=== PATIENT | male | born 1960 | race Caucasian/White ===

== ENCOUNTER 2023-08-19 12:05 | Outpatient (OUT) | payer MEDICARE, SELFPAY ==
[2023-08-19 12:55] LABS: Basophils Percent Auto 0.4 % (0.2-2.0); Eosinophils Absolute Auto 0.1 10^3/uL (0.0-0.7); Eosinophils Percent Auto 1.8 % (0.9-7.0); Hematocrit 44.5 % (42.0-54.0); Hemoglobin 14.6 g/dL (14.0-18.0); Immature Granulocytes Abs Auto 0.02 10^3/uL (0.00-0.03); Immature Granulocytes Pct Auto 0.3 % (0.0-0.5); Lymphocytes Absolute Auto 2.4 10^3/uL (1.2-3.8); Lymphocytes Percent Auto 35.4 % (20.5-60.0); Mean Corpuscular HGB Conc 32.8 g/dL (29.9-35.2); Mean Corpuscular Hemoglobin 32.7 pg (25.9-34.0); Mean Corpuscular Volume 99.6 fL (80.0-94.0); Mean Platelet Volume 9.3 fL (9.5-13.5); Monocytes Absolute Auto 0.6 10^3/uL (0.3-0.8); Monocytes Percent Auto 8.8 % (1.7-12.0); Neutrophils Absolute Auto 3.6 10^3/uL (1.4-6.5); Neutrophils Percent Auto 53.3 % (43.0-75.0); Platelet Count 212 10^3/uL (150-450); Red Blood Count 4.47 10^6/uL (4.70-6.10); Red Cell Distribution Width 11.9 % (11.0-15.0); White Blood Count 6.7 10^3/uL (4.0-11.0)
[2023-08-19 15:26] LABS: Alanine Aminotransferase 8 U/L (16-63); Albumin Globulin Ratio 1.1; Albumin Level 3.6 g/dL (3.4-5.0); Alkaline Phosphatase 49 U/L (46-116); Anion Gap 12.7; Aspartate Amino Transferase 15 U/L (15-37); BUN Creatinine Ratio 11.7; Bilirubin Total 0.4 mg/dL (0.2-1.0); Calcium 9.1 mg/dL (8.5-10.1); Chloride 104 mmol/L (98-107); Estimated GFR (African America >60 (>=60); Estimated GFR (Non-African Ame >60 (>=60); Globulin 3.3 g/dL; Glucose 78 mg/dL (74-106); Potassium 3.7 mmol/L (3.5-5.1); Sodium 139 mmol/L (136-145); Total Protein 6.9 g/dL (6.4-8.2); Valproic Acid 36.3 ug/mL (50.0-100.0)
== END 2023-08-19 12:06 | disposition home or self-care (01) ==
LOC: LAB 12:15
DX: Z86.69 Personal history of other diseases of the nervous system and sense organs (principal)
CPT/HCPCS: 36415; 80053; 80164; 85025

== ENCOUNTER 2023-12-09 12:01 | Outpatient (OUT) | payer MEDICARE, SELFPAY ==
[2023-12-09 12:32] LABS: Valproic Acid 51.4 ug/mL (50.0-100.0)
== END 2023-12-09 12:02 | disposition home or self-care (01) ==
LOC: LAB 12:02
PROVIDERS: PCP Internal Medicine; Visit Provider Physician Assistant
DX: G40.909 Epilepsy, unspecified, not intractable, without status epilepticus (principal)
CPT/HCPCS: 36415; 80164

== ENCOUNTER 2025-05-18 09:55 | Emergency (ER) | payer MEDICARE, SELFPAY ==
[2025-05-18 10:00] VITALS: BP 122/75; PULSE 77; TEMP 36.8; O2SAT 97; BMI 21.0
--- NOTE | 2025-05-18 10:42 | PC.NURSE ---
right hip / upper thigh pain, no bruising, redness or swelling observed. pt appears to have pain with ROM / bending right knee.
--- NOTE | 2025-05-18 10:42 | CT_ITS ---
The [address] [address] Patient Name: BIRGIT JORDAN MRN: [id number] date: 1960 Sex: M Assigned Patient Location: ER Current Patient Location: Accession/Order Number: [id number] Exam Date: 05/18/2025 10:50 Report Date: 05/18/2025 11:24 At the request of: JIMMIE JASSO MD Procedure: CT pelvis wo con CT BONY PELVIS WITHOUT CONTRAST WITH 3-D RECONSTRUCTIONS COMPARISON: None CLINICAL DATA: Chronic right hip pain. Possible fall. Spiral axial unenhanced images were obtained through the pelvis. Sagittal, coronal and 3-D volume rendered reconstructions were reviewed. This CT exam was performed using one or more following dose reduction techniques: Automated exposure control, adjustment of the mA and/or kV according to patient size, or use of iterative reconstruction technique. The bony pelvis including the sacrum, iliac bones and proximal femora show no evidence of fracture or dislocation. There is minimal degenerative change at the lumbosacral junction. The SI joints are intact. The musculotendinous structures in the field of view are symmetric. No subcutaneous abnormalities are seen. There are small benign-appearing inguinal lymph nodes. A small umbilical hernia is present containing fat. No dilated bowel loops are seen. The urinary bladder is under distended and there is apparent wall thickening. No ascites is identified. CT/CT pelvis wo con IMPRESSION: NO ACUTE PELVIC BONY FINDINGS. Impression dictated by: Gabby Jasmine M.D. 05/18/2025 11:24 AM Dictation Location: [facility] Electronically authenticated by: [id number] Y Date: 05/18/2025 11:24
--- OUTSIDE RECORDS SUMMARY | 2025-05-18 10:43 | XMS_ITS | Clinical Summary ---
Author Organization [employer] [facility] tem Address [id number] [place] [address] Care Team Providers Care Certified Corporate Travel Executive Name Role Phone Avila Mcdonald MD Primary Care Provider [phone] Allergies No known active allergies Medications MedicationSigDispense QuantityRefillsLast FilledStart DateEnd DateStatus OLANZapine (ZyPREXA) 20 mg tablet Take 20 mg by mouth nightly.Active omeprazole (PriLOSEC) 20 mg capsule Take 20 mg by mouth 2 (two) times a day. Take one capsule by mouth twice a day Active venlafaxine XR (EFFEXOR-XR) 75 mg 24 hr capsule Take 75 mg by mouth daily.Active benztropine (COGENTIN) 1 mg tablet Take 1 mg by mouth 2 (two) times a day. Take one tablet by mouth twice a day Active divalproex (DEPAKOTE ER) 500 mg 24 hr tablet Take 1 tablet (500 mg total) by mouth daily. 30 tablet 6106/18/2018Active Active Problems ProblemNoted DateDiagnosed DateIntracerebral zoxwuzpwuy05/24/2019 Immunizations No known immunizations Family History Medical HistoryRelationNameCommentsNo Known ProblemsFatherNo Known Problems MotherRelationNameStatusCommentsFatherDeceasedMotherDeceased Social History Tobacco UseTypesPacks/DayYears UsedDateSmoking Tobacco: NeverSmokeless Tobacco: NeverAlcohol UseStandard Drinks/WeekCommentsNever0 (1 standard drink = 0.6 oz pure alcohol)AUDIT-CAnswerDate RecordedFrequency of Alcohol ConsumptionNever 02/22/2019Average Number of DrinksNot on file02/22/2019Frequency of Binge DrinkingNot on file02/22/2019ChildcareAnswerDate RecordedChildcareUnknown 02/22/2019EmploymentAnswerDate FnvxdsalZxaojtzfxwXaaebum08/24/2019Purpose - Life AnswerDate RecordedPurpose and direction in sdcgMqxvatt18/11/2021Sex and Gender InformationValueDate RecordedSex Assigned at BirthNot on fileLegal SexMale 02/22/2019 3:55 PM EDTGender IdentityNot on fileSexual OrientationNot on file Last Filed Vital Signs Vital SignReadingTime TakenCommentsBlood Ojytlpxi240/8102/26/2019 4:13 PM EDT Holqu834702/26/2019 4:13 PM IPEIbkbnbwdpsz94.8 ??C (98.2 ??F)02/26/2019 4:13 PM EDTRespiratory Zums675302/26/2019 11:23 AM EDTOxygen Rtmxfvfeau91%02/26/2019 4:13 PM EDTInhaled Oxygen Concentration--Kcuzhq75.9 kg (158 lb 8.2 oz)02/26/2019 5:00 AM HYDRxjgcp010.6 cm (5' 4 )02/22/2019 11:28 PM EDTBody Mass Index27.21 02/22/2019 11:28 PM EDT Plan of Treatment Health MaintenanceDue DateLast DoneCommentsDepression Gonfllxsj89/02/1972Tobacco Hqxcqdtev55/02/1972Adult BMI Syjzsleea1978DTaP,Tdap and Td Vaccines (1 - Tdap)1978Zoster (Shingles) Vaccine (1 of 2)2009Fall Risk Screening 2024Influenza Mixkrlb0601/30/2025RSV ( or age 60+ yrs) (1 - 1-dose 75+ series)2034 Goals GoalPatient Goal TypeAssociated ProblemsRecent ProgressPatient-Stated?Author safe discharge home Margaret Kim, RN Note: Evaluation of progress towards goal: Return home with self care and family support. Medical Devices Not on file Insurance Care Teams Team MemberRelationshipSpecialtyStart DateEnd Avila Mcdonald MD [address] [facility] [address] [place] [id number] PCP - GeneralInternal Medicine02/24/19
--- OUTSIDE RECORDS SUMMARY | 2025-05-18 10:43 | XMS_ITS | Clinical Summary ---
Author Organization [facility] Address [address] [facility] [place] [address] Care Team Providers Care Waste Hand Name Role Phone Avila Mcdonald MD Primary Care Provider [phone] Avila Mcdonald MD Unavailable [phone] Eri Quezada Unavailable Allergies No known active allergies Medications MedicationSigDispense QuantityRefillsLast FilledStart DateEnd DateStatus loratadine (Claritin) 10 MG tablet Indications:Allergic rhinitis, unspecified seasonality, unspecified triggerTAKE 1 TABLET BY MOUTH EVERY DAY 100 tablet 4Active cyanocobalamin (Vitamin B-12) 1000 MCG tablet Take 1,000 mcg by mouth DailyActive megestrol (Megace) 40 MG/ML suspension Indications:AnorexiaTAKE 10ML BY MOUTH ONCE A DAY WHEN NEEDED FOR ANOREXIA 240 mL 4Active Additional Information Patient not taking.Reported on 01/18/2025 divalproex (Depakote) 250 MG EC tablet Indications:History of seizure disorder,Nonintractable epilepsy without status epilepticus, unspecified epilepsy type (HCC)TAKE 1 TABLET BY MOUTH EVERY 12 HOURS 180 tablet 4Active carbidopa-levodopa (Sinemet) 25-100 MG tablet Indications:Other symptoms and signs involving the musculoskeletal systemTAKE 1 TABLET BY MOUTH THREE TIMES A DAY FOR 30 DAYS 270 tablet 1025Active benztropine (Cogentin) 1 MG tablet Indications:Schizoaffective disorder, unspecified type (HCC)TAKE 1 TABLET BY MOUTH EVERY 8 HOURS 270 tablet 5Active omeprazole (PriLOSEC) [address] capsule Indications:Gastroesophageal reflux disease, unspecified whether esophagitis presentTAKE 1 CAPSULE BY MOUTH TWICE A DAY 30 MINUTES BEFORE MEALS 180 capsule 4095Active LORazepam (Ativan) 1 MG tablet Indications:Nonintractable epilepsy without status epilepticus, unspecified epilepsy type (HCC)Take 1 tablet (1 mg) by mouth every 8 (eight) hours if needed for anxiety 90 tablet 5006/01/2025ctive Active Problems ProblemNoted DateDiagnosed DateAltered mental kysidd3501/18/2025Deficit in activities of daily living (ADL)01/18/2025Delayed pattern of bfpjqr0001/18/2025 Depressive lrgsbcog72/20/7848Bppvgxlbmugrim87/20/2025History of CVA (cerebrovascular accident)01/18/2025History of schizoaffective disorder 01/18/20255135Iihdrydun91/20/2025On valproic acid asvrboc8501/18/2025Unable to eat 01/18/20257687Irqqdygp57/20/2025Weight loss01/18/20250084Vgvewlvo64/13/2024Seizures 10/12/20231803Aluunrxtwozl08/13/2024atatonic disorder due to known physiological vgjczzuex35/13/1459Nkvetvc83/12/2023llergic talxhkvk99/28/2023lteration of nimdsnyrq38/28/2023 Overview (12/06/2023): 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 He has history of childhood epilepsy and he was treated with phenobarbital but was able to be weaned off of this. Hewas having headaches and it was decided to start Depakote for both seizure prevention and headache p revention. Previous imaging revealed volume loss and microvascular ischemic changes. [place] [facility] [place] encephalopathy with sharp wave discharges at the left temporal lobe with an increased propensity for seizure. No recent seizures Vhsxvnvi64/28/2023erebral olrliwho66/28/2023Esophageal osxfbw2211/26/2022 Extrapyramidal and movement disorder, eskadatelqj58/28/2023Hypertriglyceridemia 11/26/2022Nontraumatic subcortical hemorrhage of right cerebral hemisphere 11/26/2022Nontraumatic thalamic jctpnfozje25/28/2023Oral phase dysphagia 11/26/2022Other sequelae of cerebral egpjlbpepl87/28/2023Schizoaffective rzavzeqr05/03/2023Epilepsy, unspecified, not intractable, without status qgmbouxkjtc50/03/2023Medication monitoring hedeupfgr88/13/4780Tnwqnrhf12/20/2012 Noigsnoblizvu03/20/2012 Resolved Problems ProblemNoted DateDiagnosed DateResolved DateCerebral oiitmjoinm67/28/2023 07/16/2023 Encounters DateTypeDepartmentCare QajuKvumsjyxagc50/02/2025Refill [facility] [address] [facility] [address] [place] [address] Gabby Delcid PA Nonintractable epilepsy without status epilepticus, unspecified epilepsy type (HCC)from Last 3 Months Immunizations ImmunizationAdministration DatesNext DueInfluenza, injectable, MDCK, preservative free, fqckfpllawcp22/04/2020,02/20/2019Influenza, injectable, ltdvsroksdhe41/06/2021Influenza, injectable, quadrivalent, preservative free 04/14/2022,02/17/2018Influenza, seasonal, intradermal, preservative free 04/06/2017Pneumococcal Conjugate PCV 2Pneumococcal Polysaccharide EPRK7701Zoster, Ysnamzwntna67/16/2020 Family History Medical HistoryRelationNameCommentsHeart diseaseFatherHypertensionFatherHeart diseaseMotherKidney diseaseMotherRelationNameStatusCommentsFatherDeceasedMother Social History Tobacco UseTypesPacks/DayYears UsedDateSmoking Tobacco: NeverSmokeless Tobacco: NeverAlcohol UseStandard Drinks/WeekCommentsNever0 (1 standard drink = 0.6 oz pure alcohol)PHQ-2AnswerDate RecordedPatient Health Questionnaire-2 Score0 01/18/2025Sex and Gender InformationValueDate RecordedSex Assigned at BirthNot on fileLegal JyrSvrj6708/13/2022 7:05 PM EDTGender IdentityNot on fileSexual OrientationNot on file Last Filed Vital Signs Vital SignReadingTime TakenCommentsBlood Nifxbwya402/7608 3:00 PM EDT Lqsla1695 3:00 PM EDTTemperature--Respiratory Kiim1678 3:00 PM EDTOxygen Pshyjztoae03%01/18/2025 3:00 PM EDTInhaled Oxygen Concentration-- Ktykwy66.9 kg (145 lb 3.2 oz)01/18/2025 3:00 PM LHSQradsr150.2 cm (5' 7 ) 01/18/2025 3:00 PM EDTBody Mass Index22.7401/18/2025 3:00 PM EDT Plan of Treatment DateTypeDepartmentCare Team (Latest Contact Info)Ntjxzvhaywu82/19/2026 11:30 AM ESTOffice Visit [facility] [address] [facility] [address] [place] [phone] Avila Mcdonald MD [address] [facility] [address] [place] [address] Health MaintenanceDue DateLast DoneCommentsCT Uvknxxkcghvc1959FIT-DNA 1959FIT3688BWLV19/02/2639Gmqrwxcmcjymm1959COVID-19 Vaccine ( season)/07/2020Influenza Vaccine (#1)/, 03/06/2021, 05/04/2020, Additional [facility] ([facility] /, 12/07/20234459Xgzrakopmzv16/20/202711/Colorectal Cancer Lhtimcejo73/20/2027Pneumococcal Vaccine: 65+ UkshzVyhasgxnr85/10/2022, 07/12/2020 Procedures Procedure NamePriorityDate/TimeAssociated DiagnosisCommentsCOLONOSCOPYRoutine 04/20/2017 12:00 PM EST from Last 3 Months or Most Recently Relevant to Health Maintenance Results * Colonoscopy (04/20/2017 12:00 PM EST)Anatomical RegionLateralityModality EndoscopySpecimen (Source)Anatomical Location / LateralityCollection Method / VolumeCollection TimeReceived Time04/20/2017 12:00 PM EST Narrative 04/20/2017 12:00 PM EST PERFORMED AT [facility] LOCATION:[id number] Normal Procedure Note CONVERSION, GENERIC - 10/16/2022 PERFORMED AT [facility] LOCATION:[id number] Normal Authorizing ProviderResult TypeResult StatusDanijeanna Mcdonald MDENDOSCOPY PROCEDURE ORDERABLESFinal Result from Last 3 Months or Most Recently Relevant to Health Maintenance Insurance Care Teams Team MemberRelationshipSpecialtyStart DateEnd Avila Mcdonald MD [address] [facility] [address] [place] [address] PCP - GeneralInternal Medicine11/26/22 Avila Mcdonald MD [address] [facility] [address] [place] [address] PCP - ACO Reach11/10/22 Eri Quezada PA Physician AssistantNeurology08/18/24
[2025-05-18 10:56] VITALS: BP 113/77; PULSE 70; O2SAT 100
[2025-05-18] MEDS: KETOROLAC TROMETHAMINE 30 MG/ML VIAL 15 MG IM (10:57)
--- NOTE | 2025-05-18 11:55 | ED.EXTPRO1 ---
HPI - Extremity Problem General Chief complaint: Extremity Problem, Nontraumatic Stated complaint: R HIP PAIN Time Seen by Provider: 05/18/25 10:06 Source: patient Mode of arrival: ambulance Limitations: no limitations History of Present Illness HPI Narrative: The patient is 64 years old brought to us by the EMS after he called them because his been having right hip pain, hip pain has been going on at least for few years the patient denies any fall although I did see a bruise in his anterior knee that looks almost 7 days old The patient denies any other injuries He did walk to the EMS Related Data Home Medications ?Medication ?Instructions ?Recorded ?Confirmed carbidopa 25 mg-levodopa 100 mg 1 tab PO TID 05/18/25 05/18/25 tablet divalproex 250 mg tablet,extended 250 mg PO DAILY 05/18/25 05/18/25 release 24 hr lorazepam 1 mg tablet 1 mg PO Q8H PRN anxiety 05/18/25 05/18/25 omeprazole 20 mg capsule,delayed 20 mg PO DAILY 05/18/25 05/18/25 release Previous Rx's ?Medication ?Instructions ?Recorded diclofenac sodium 50 mg 50 mg PO Q12H PRN pain #10 tabs 05/18/25 tablet,delayed release Allergies Allergy/AdvReac Type Severity Reaction Status Date / Time Unable to Assess Allergy Verified 05/18/25 10:00 Review of Systems ROS Status of ROS 10 or more systems reviewed and unremarkable except as noted in history and below PFSH PFSH Social History Little interest or pleasure in doing things: not at all Feeling down, depressed, or hopeless: not at all Exam Narrative Exam Narrative: Nurses notes and vital signs reviewed and patient is not hypoxic. General: Well-appearing and in no apparent distress. Skin: Warm, dry, no pallor noted. No rash. Head: Normocephalic, atraumatic. Neck: Supple, non-tender. Cardiovascular: Regular Rate and Rhythm without murmur, gallop or rub. Respiratory: No accessory muscle use or respiratory distress. Lungs are clear to auscultation, no wheezing, rales or rhonchi Chest Wall: no tenderness Back: No midline thoracic or lumbar vertebral tenderness. No CVA tenderness Musculoskeletal: The patient have tenderness upon palpation of the right hip and he have a normal range of movement with pain no ecchymosis that is apparent on the right hip but the patient have a small bruise on the anterior of the right knee that is greenish in color GI: Abdomen is soft, non-distended. Normal bowel sounds. No masses appreciated. No tenderness to palpation. No rebound, guarding, or rigidity noted. Neurological: A&O x4. No cranial nerve dysfunction observed. No truncal ataxia. Moves all extremities. Sensation intact. Psychiatric: Cooperative and interactive. Normal mood and affect. Constitutional Vital Signs, click to edit/add: Last Vital Signs Temp 98.2 F 05/18/25 10:00 Pulse 73 05/18/25 12:29 Resp 16 05/18/25 12:29 BP 105/73 05/18/25 12:29 Pulse Ox 99 05/18/25 12:29 O2 Del Method Room Air 05/18/25 10:00 Course Vital Signs Vital signs: Vital Signs Temperature 98.2 F 05/18/25 10:00 Pulse Rate 77 05/18/25 10:00 Respiratory Rate 18 05/18/25 10:00 Blood Pressure 122/75 05/18/25 10:00 Pulse Oximetry 97 05/18/25 10:00 Oxygen Delivery Method Room Air 05/18/25 10:00 Temperature 98.2 F 05/18/25 10:00 Pulse Rate 73 05/18/25 12:29 Respiratory Rate 16 05/18/25 12:29 Blood Pressure 105/73 05/18/25 12:29 Pulse Oximetry 99 05/18/25 12:29 Oxygen Delivery Method Room Air 05/18/25 10:00 MDM - Extremity (Nontraumatic) MDM Narrative Medical decision making narrative: I obtained a CT of the hip because the patient history of falls that is apparent on the bruise that he have in his right knee although the patient denies any fall CT of the hip shows no acute pathology Patient was feeling better after he was treated with Toradol in the ER and he was able to ambulate with no problem The patient provided with Voltaren to go home with The patient to follow-up with the primary care within 2 to 3 days and to come back to the ER in case of any worsening of the current symptoms or any new symptoms or concerns Discharge Plan Discharge Chief Complaint: Extremity Problem, Nontraumatic Clinical Impression: Chronic hip pain Patient Disposition: Home, Self-Care Time of Disposition Decision: 11:55 Condition: Good Mode of Transportation: Private Vehicle Prescriptions / Home Meds: New diclofenac sodium 50 mg tablet,delayed release (DR/EC) 50 mg PO Q12H PRN (Reason: pain) Qty: 10 0RF No Action carbidopa-levodopa 25-100 mg tablet 1 tab PO TID divalproex 250 mg tablet extended release 24 hr 250 mg PO DAILY lorazepam 1 mg tablet 1 mg PO Q8H PRN (Reason: anxiety) omeprazole 20 mg capsule,delayed release(DR/EC) 20 mg PO DAILY Print Language: Divehi Instructions: Hip Pain (ED) Additional Instructions: Please take all medication with food noted in the stomach Referrals: SUKHWINDER GALLARDO [Primary Care Provider, Internal Medicine] - 1 week Discharge Date/Time: 05/18/25 13:03
[2025-05-18 12:29] VITALS: BP 105/73; PULSE 73; O2SAT 99
== END 2025-05-18 13:03 | disposition home or self-care (01) ==
PROVIDERS: Emergency Provider Emergency Medicine; PCP Internal Medicine
DX: M25.551 Pain in right hip (principal); G89.29 Other chronic pain
CPT/HCPCS: 72192; 76376; 96372; 99284; J1885